=== PATIENT | female | born 1985 | race African-American/Black ===

== ENCOUNTER 2018-11-30 21:08 | Emergency (ER) | payer SELFPAY ==
[~2018-11-30] VITALS: Ht 170.2 cm; Wt 81.6 kg
[2018-11-30 21:16] VITALS: BP 156/97
[2018-11-30 21:56] LABS: BASOPHILS % (AUTO) 0.6 % (0.0-2.0); EOSINOPHILS # (AUTO) 0.1 K/uL (0-0.4); EOSINOPHILS % (AUTO) 1.1 % (0.0-4.0); HEMATOCRIT 35.3 % (36-48); HEMOGLOBIN 11.9 g/dL (12.0-16.0); LYMPHOCYTES # (AUTO) 1.5 K/uL (2.5-16.5); LYMPHOCYTES % (AUTO) 27.3 % (20.5-51.1); MEAN CORPUSCULAR HEMOGLOBIN 29 pg (27-31); MEAN CORPUSCULAR HGB CONC 34 g/dL (33-37); MONOCYTES # (AUTO) 0.5 K/uL (0.8-1.0); MONOCYTES % (AUTO) 9.5 % (1.7-9.3); NEUTROPHILS # (AUTO) 3.5 K/uL (1.8-7.7); NEUTROPHILS % (AUTO) 61.5 % (42.2-75.2); PLATELET COUNT (AUTO) 221 K/uL (140-450); RED CELL DISTRIBUTION WIDTH 13.8 % (11.6-13.7); WHITE BLOOD COUNT (AUTO) 5.7 K/uL (4.8-10.8)
[2018-11-30 22:21] LABS: ANION GAP 11.2 (8-16); CARBON DIOXIDE 27.2 mmol/L (21-32); POTASSIUM 3.4 mmol/L (3.5-5.1)
[2018-11-30 22:22] LABS: CREATININE 0.9 mg/dL (0.6-1.3)
[2018-12-01 00:52] LABS: APPEARANCE,URINE CLEAR (CLEAR); BILIRUBIN,URINE NEGATIVE (NEGATIVE); BLOOD, URINE NEGATIVE (NEGATIVE); COLOR,URINE YELLOW (YELLOW); LEUKOCYTE ESTERASE ,URINE 2+ (NEGATIVE); NITRITE, URINE NEGATIVE (NEGATIVE); UGLUCOSE NEGATIVE (NEGATIVE)
[2018-12-01 00:56] LABS: RBC,URINE 0-5 (RARE) /HPF (0-5); WBC,URINE TOO MANY TO COUNT /HPF (0-5)
[2018-12-01 01:11] VITALS: BP 139/91
== END 2018-12-01 00:30 | disposition home or self-care (01) ==
LOC: MED 21:08
DX: O20.0 Threatened abortion (principal); Z3A.01 Less than 8 weeks gestation of pregnancy
CPT/HCPCS: 36415; 76817; 80048; 81001; 84702; 85025; 86900; 86901; 87086; 99284; Q0092

== ENCOUNTER 2018-12-29 11:49 | Emergency (ER) | payer SELFPAY ==
[~2018-12-29] VITALS: Ht 170.2 cm; Wt 82.6 kg
[2018-12-29 12:10] VITALS: BP 132/76
--- NOTE | 2018-12-29 12:17 | NUR ---
PT AMBULATES TO BED 8
--- NOTE | 2018-12-29 12:30 | NUR ---
33 yo f bib boyfriend w/ c/o vaginal spotting x 2 days w/ 01/28 llq pain. reports that beginning of nov she was told she was having a miscarriage. pt reports her LMP 12/20/18. abd soft, non-tender. bowel sounds active x 4. nad .awaiting er md reyes.
[2018-12-29] MEDS ORDERED: KETOROLAC 60 MG/2 ML VIAL IM ONE (12:40)
--- NOTE | 2018-12-29 12:53 | NUR ---
pt to ultrasound via w/c
[2018-12-29] MEDS ORDERED: AZITHROMYCIN 250 MG TAB PO ONE (14:00)
[2018-12-29] MEDS ORDERED: cefTRIAXone 250 MG in LIDOCAINE MPF 1% - 5 mL VIAL 0.9 ML IM ONE (14:00)
--- NOTE | 2018-12-29 14:47 | NUR ---
Patient discharged with v/s stable. Written and verbal after care instructions given and explained. Patient alert, oriented and verbalized understanding of instructions. Ambulatory with steady gait. All questions addressed prior to discharge. ID band removed. Patient advised to follow up with PMD. Rx of TRAMADOL AND MOTRIN given. Patient educated on indication of medication including possible reaction and side effects. Opportunity to ask questions provided and answered.
[2018-12-29 14:49] VITALS: BP 128/57
== END 2018-12-29 14:47 | disposition home or self-care (01) ==
LOC: MED 11:49
DX: O23.592 Infection of other part of genital tract in pregnancy, second trimester (principal); O26.892 Other specified pregnancy related conditions, second trimester; M54.5 Low back pain; Z3A.14 14 weeks gestation of pregnancy
CPT/HCPCS: 36415; 76801; 84702; 96372; 99284; J0696; J1885; J2001